=== PATIENT | female | born 1950 | race Caucasian/White ===

== ENCOUNTER 2024-10-18 06:22 | Day surgery (SDC) | payer MEDICARE, BC, SELFPAY ==
[2024-10-18 09:15] VITALS: BMI 45.0
[2024-10-18 09:30] VITALS: BMI 45.0
[2024-10-18 09:31] VITALS: BP 148/65
[2024-10-18 10:46] VITALS: BP 115/86
[2024-10-18 11:00] VITALS: BP 122/97
[2024-10-18 11:15] VITALS: BP 113/49
== END 2024-10-18 11:15 | disposition home or self-care (01) ==
LOC: SDS 06:22
PROVIDERS: ATTENDING PHYSICIAN Internal Medicine Gastroenterology
DX: Z12.11 Encounter for screening for malignant neoplasm of colon (principal); D12.0 Benign neoplasm of cecum; D12.3 Benign neoplasm of transverse colon; K63.5 Polyp of colon; K57.30 Diverticulosis of large intestine without perforation or abscess without bleeding; K62.1 Rectal polyp; Z86.0101 Personal history of adenomatous and serrated colon polyps
CPT/HCPCS: 45385; 45380; 88305

== ENCOUNTER → 2025-07-16 14:28 | Outpatient (REF) | payer MEDICARE, BC, SELFPAY | LOC: RCS 14:28 | PROVIDERS: ATTENDING PHYSICIAN Internal Medicine | DX: R01.1 Cardiac murmur, unspecified (principal) | CPT/HCPCS: 93306 ==